=== PATIENT | male | born 1945 | race Caucasian/White ===

== ENCOUNTER 2022-08-18 14:42 | Emergency (ER) | payer MEDICARE, SELFPAY ==
[2022-08-18 15:59] VITALS: BP 145/115; PULSE 67; RESP 18; TEMP 36.7; O2SAT 96; BMI 23.2
--- NOTE | 2022-08-18 16:14 | EXP.UTC ---
Discharge Plan Disposition Patient Disposition: Home, Self-Care Condition: Good Prescriptions Prescriptions: New azithromycin [Zithromax Z-Delfino] 250 mg tablet See Rx Instructions .ROUTE .COMPLEX 5 Days Qty: 6 0RF Rx Instructions: For 250 mg dose pack: take 500 mg today (day 1), then 250 mg for 4 days (days 2-5) prednisone 20 mg tablet 20 mg PO BID Qty: 10 0RF No Action pravastatin 40 mg tablet 40 mg PO DAILY Label Comments: TAKE 2 TABLETS BY MOUTH EVERY DAY amlodipine 5 mg tablet 5 mg PO DAILY Label Comments: TAKE 1 TABLET BY MOUTH DAILY levothyroxine 75 mcg tablet 75 mcg PO DAILY Label Comments: TAKE 1 TABLET BY MOUTH EVERY DAY tamsulosin 0.4 mg capsule 0.4 mg PO HS Label Comments: TAKE 1 CAPSULE BY MOUTH AT BEDTIME losartan-hydrochlorothiazide 100-12.5 mg tablet 1 tab PO DAILY Label Comments: TAKE 1 TABLET BY MOUTH DAILY Referrals Follow up/Referrals: Abdi Morfin MD [Primary Care Provider] - See instructions Activity Restrictions/Add. Instructions Additional Instructions/Restrictions: Start antibiotic today. Be sure to complete entire prescription even if feeling better Monitor temp. Tylenol every 4 hours as needed and / or ibuprofen every 6 hours as needed ( As long as your primary care physician has told you that it ok to take both. For fever/aches/pains ER if no less than 101 despite Tylenol or Motrin Humidifier/vaporizer or hot steamy shower Inhaler every 4-6 hours as needed like we discussed. If unsure how to use it, ask pharmacist to demonstrate how. Should help open airways and improve cough, wheezing, and shortness of breath *Start steroid today. Helps with inflammation therefore, cough and wheezing. Follow directions on the package. Reviewed side effects. Patient reports taking them before. Follow up IMMEDIATELY for new or worsening of symptoms OR no noticeable improvement over the next 48-72 hours. 911 immediately for any life threatening symptoms such as chest pain or difficulty breathing Clinical Impressions Clinical Impression: Sinusitis, Bronchitis Instructions Patient Instructions: Acute Bronchitis, DI for Sinusitis Discharge ED Provider: Rebekah Perez [facility] [place] HPI General Stated complaint: copd, hard to hear, cough Mode of Arrival: Ambulatory Source of Information: Patient Limitations: No Limitations Time Seen by Provider: 08/18/22 16:14 Description of Symptoms (Recalled from Triage Doc. by RN): pt comes in with c/o body aches, congestion, cant hear from ears. symptoms began a few days ago. HEENT Symptoms (Recalled from RN notes): Yes Resp Symptoms (Recalled from RN notes): Yes Skin Symptoms (Recalled from RN notes): No MS Symptoms (Recalled from RN notes): No Functional Status (Recalled from RN notes): n/a History of Present Illness Provider Complaint: Patient states that he has been having sinus congestion and pressure, stopped up ears, and scratchy throat that started a few days ago and has continued to get worse Patient state that he has COPD so when he gets sick it gets a little worse Related Data Home Medications Medication Instructions Recorded Confirmed amlodipine 5 mg tablet 5 mg PO DAILY High blood pressure 08/18/22 08/18/22 levothyroxine 75 mcg tablet 75 mcg PO DAILY supp 08/18/22 08/18/22 losartan 100 1 tab PO DAILY High blood pressure 08/18/22 08/18/22 mg-hydrochlorothiazide 12.5 mg tablet pravastatin 40 mg tablet 40 mg PO DAILY Heart disease 08/18/22 08/18/22 tamsulosin 0.4 mg capsule 0.4 mg PO HS urine retention 08/18/22 08/18/22 Previous Rx's Medication Instructions Recorded azithromycin 250 mg tablet See Rx Instructions PO .COMPLEX 5 08/18/22 (Zithromax Z-Delfino) days #6 tabs prednisone 20 mg tablet 20 mg PO BID #10 tabs 08/18/22 Allergies Allergy/AdvReac Type Severity Reaction Status Date / Time codeine
[2022-08-18 16:46] VITALS: BP 138/59; PULSE 67; RESP 18; TEMP 36.7
== END 2022-08-18 16:47 | disposition home or self-care (01) ==
PROVIDERS: Emergency Provider Nurse Practitioner; PCP Emergency Medicine
DX: J20.9 Acute bronchitis, unspecified (principal); J44.0 Chronic obstructive pulmonary disease with (acute) lower respiratory infection; F17.210 Nicotine dependence, cigarettes, uncomplicated
CPT/HCPCS: 99212; G0463